=== PATIENT | male | born 1950 | race Caucasian/White ===

== ENCOUNTER 2022-07-03 08:51 | Day surgery (SDC) | payer OTHER ==
[2022-07-02 09:51] LABS: Absolute Lymphocytes (CBC) 1.3 K/uL (0.7-4.9); Hematocrit 39.3 % (39.6-49.0); Lymphocytes % 26.5 % (15.3-44.8); MCV 93.5 fL (80-100); MPV 7.8 fL (7.6-11.3)
[2022-07-02 10:03] LABS: Potassium 3.3 mEq/L (3.5-5.1)
--- NOTE | 2022-07-03 04:52 | EKG ---
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
[2022-07-03] MEDS ORDERED: CEFAZOLIN SODIUM 1 GM/VIAL ONE (09:07)
[2022-07-03] MEDS ORDERED: Ringers Lactate 1,000 ML IV ONE (09:07)
[2022-07-03] MEDS ORDERED: MIDAZOLAM HCL 2 MG/2 ML INJ ONE (11:01)
[2022-07-03] MEDS ORDERED: propofoL 200 MG/20 ML VIAL IV ONE (11:01)
[2022-07-03] MEDS ORDERED: FENTANYL CITR 100 MCG/2 ML ONE (11:01)
[2022-07-03] MEDS ORDERED: LIDOCAINE 2% MPF 5 ML VIAL ONE (11:02)
[2022-07-03] MEDS ORDERED: ONDANSETRON 4 MG/2 ML VIAL ONE (11:02)
[2022-07-03] MEDS ORDERED: KETOROLAC 30 MG/ML INJ ONE (12:08)
[2022-07-03] MEDS ORDERED: HYDROCODONE/APAP 10/325 TAB ONE (13:47)
[2022-07-03 14:12] VITALS: BP 129/83; TEMP 97.2; O2SAT 99
--- NOTE | 2022-07-03 23:16 | OP ---
Date of Procedure: 07/03/2022 Surgeon: Beltran Whitmore MD Preoperative Diagnoses: Left knee pain with mechanical symptoms, probable medial and lateral menisca l tears. Postoperative Diagnosis: Left knee with displaceable medial and lateral meniscal tears. Estimated Blood Loss: Less than 10 cc. Procedure: Left knee arthroscopy with debridement of medial and lateral meniscal tears. Indications For Operation: Mr. Espinoza is a 72-year-old gentleman who unfortunately has had pain, weak ness, and disability since injuring himself playing pickleball in April. He did not respond well to conservative management. X-rays did not demonstrate extensive arthritic changes. Therefore, an M RI was done, which demonstrates probable medial and lateral meniscal tears. Risks, benefits, and alt ernatives to knee arthroscopy have been discussed with the patient. He states he understands things as presented and wishes to proceed. Description Of Procedure: The patient was taken to the operating room and placed in the supine posit ion. General anesthesia obtained by staff. Following this, well-padded tourniquet placed on superio r left thigh. Left lower extremity was then prepped and draped in the usual sterile fashion procedur e. Following this, a standard superomedial arthroscopy portal was then placed with liberation approx imately 10 cc of rather normal-appearing synovial fluid. This was followed by placement of inferolat eral arthroscopy portal. The knee was then sequentially examined including the suprapatellar pouch, medial and lateral gutters, medial and lateral compartments, as well as the notch and patellofemoral joint. Pertinent findings included what appeared to be tear of the medial meniscus with a small radi al flap as well as a complex tear of the lateral meniscus and a standard inferomedial arthroscopy por americo was then placed using direct vision and the shaver was used to debride back the medial meniscus t o a firm hook, stable, well contoured base. Attention was then turned to the lateral meniscus. This had a very large horizontal component as well as very frayed. It was probed and was then debrided b ack until it was a firm hook, stable, and fairly well contoured. It should be noted that there was a residual horizontal tear, which goes along, but this was not displaceable within the knee joint and felt rather than excising additional meniscus this could provide some hook stress and therefore, was retained. After this, the knee was again examined in all of the above areas. No further pathology s een, which was amenable to arthroscopic intervention. The inferior arthroscopy portals were then sta pled shut. This was followed by placement of Marcaine with epinephrine. With superomedial arthrosco py portal, this was then stapled. The patient was placed in a well-padded sterile dressing, awakened and taken to recovery room. No complications. /MODIshaan Voice ID: [id number] Report ID: [id number]
== END 2022-07-03 13:56 | disposition home or self-care (01) ==
LOC: OR 08:51
PROVIDERS: ATTEND Orthopaedic Surgery
PROC: 0SBD4ZZ Excision of Left Knee Joint, Percutaneous Endoscopic Approach (ICD-10-PCS; principal; 2022-07-03 12:00)
DX: S83.242A Other tear of medial meniscus, current injury, left knee, initial encounter (principal); S83.282A Other tear of lateral meniscus, current injury, left knee, initial encounter
CPT/HCPCS: 93005; 85025; 80048; 36415; 29877; J2704; J2001; J2250; J3010; J2405; J7120; J0690

== ENCOUNTER → 2023-05-22 | Emergency (ER) | payer OTHER ==
--- OUTSIDE RECORDS SUMMARY | 2023-05-22 10:16 | XMS REPORT | Continuity of Care Document ---
Author Name Unknown Address [address] [facility] [address] thconnect Address [address] [facility] [address] [place] [address] Care Team Providers Care Air Deodorizer Servicer Name Role Phone Swapna Attending Clinician Unavail Beltran Whalen MD Attending Clinician MUKUND VALENTINO Attending Clinician Unavailable BELTRAN CRUZ M.D. Attending Clinician UnavailMARIPOSA Fowler M.D. Attending Clinician Unavail able Swapna Admitting Clinician Unavail able Payers Payer Name Policy Type Policy Number Effective Date Expirati on Date Source [facility] (MEDICARE SUPPLEMENT) [id number] 2022 00:00:00 MEDICARE PART A \T\ B [id number] 2018 00:00:00 Problems Condition Name Condition Details Condition Category Status Onset Date Resolution Date Last Treatment Date Treating Clinician Comments Source Normal routine physical examinatio n Normal routine physical examinatio n Problem Active [facility] Gouty arthritis Gouty arthritis Problem Active [facility] Sarcoidosi s Sarcoidosi s Problem Active [facility] Allergies, Adverse Reactions, Alerts Allergy Name Allergy Type Status Severity Reaction(s) Onset Date Inactive Date Treating Clinician Comments Source Codeine Allergy to substanc e Active 09-26 00:00: 00 [facility] NO KNOWN ALLERGIE S Drug Class Active [facility] Codeine Derivati ves Allergy to drug (finding ) Active [facility] Social History Social Habit Start Date Stop Date Quantity Comments Source Exposure to SARS-CoV-2 (event) Not sure [facility] Sex Assigned At 1950 00:00:00 1950 00:00:00 [facility] Smoking Status Start Date Stop Date Source Unknown if ever smoked [facility] Never smoked tobacco (finding) [facility] Medications Ordered Medication Name Filled Medication Name Start Date Stop Date Current Medication? Ordering Clinician Indication Dosage Frequency Signature (SIG) Comments Components Source lisinopril 10 MG tablet 08-12 00:00: 00 Yes 10mg Q.5D Take 10 mg by mouth 2 (two) times a day. [facility] predniSONE 20 MG Oral Tablet predniSONE 20 MG Oral Tablet 08-18 00:00: 00 Yes MARIPOSA JUAREZ M.D. QD TAKE ONE (1) TABLET(S) BY MOUTH ONCE A DAY WITH FOOD. [facility] Aspirin 81 MG TABS Aspirin 81 MG TABS 2013-03 00:00: 00 Yes 1 QD TAKE 1 TABLET DAILY. [facility] Lisinopril 10 MG Oral Tablet Lisinopril 10 MG Oral Tablet 2012-03 00:00: 00 Yes 1 Q0.5D TAKE 1 TABLET TWICE DAILY [facility] Vitamin B 12 250 MCG Oral Lozenge Vitamin B 12 250 MCG Oral Lozenge 07-30 00:00: 00 Yes [facility] ZyrTEC Allergy 10 MG Oral Capsule ZyrTEC Allergy 10 MG Oral Capsule 07-30 00:00: 00 Yes 1 QD TAKE 1 CAPSULE DAILY PRN allergies [facility] Triamcinolo ne Acetonide 0.1 % External Cream Triamcinolo ne Acetonide 0.1 % External Cream 07-30 00:00: 00 Yes Q0.5D APPLY AND RUB IN A THIN FILM TO AFFECTED AREAS TWICE DAILY.(AM AND PM). [facility] Neutrogena Naturals Face/Body BAR Neutrogena Naturals Face/Body BAR 07-30 00:00: 00 Yes [facility] Vital Signs Vital Name Observation Time Observation Value Comments S heather BP Systolic 2019-01-26 14:16:00 108 mm[Hg] Location : LUE; Position: Sitting [facility] BP Diastolic 2019-01-26 14:16:00 68 mm[Hg] Location : LUE; Position: Sitting [facility] Weight 2019-01-26 14:16:00 186.3125 [lb_av] [facility] Body Mass Index Calculated 2019-01-26 14:16:00 24.58 kg/m2 [facility] Heart Rate 2019-01-26 14:16:00 69 /min [facility] BP Systolic 2019-01-26 14:12:00 135 mm[Hg] Location : LUE; Position: Sitting [facility] BP Diastolic 2019-01-26 14:12:00 82 mm[Hg] Location : LUE; Position: Sitting [facility] Weight 2019-01-26 14:12:00 194.125 [lb_av] [facility] Body Mass Index Calculated 2019-01-26 14:12:00 25.61 kg/m2 [facility] Heart Rate 2019-01-26 14:12:00 70 /min [facility] BP Systolic 2018-01-20 13:26:00 118 mm[Hg] Location : RUE; Position: Sitting [facility] BP Diastolic 2018-01-20 13:26:00 80 mm[Hg] Location : RUE; Position: Sitting [facility] Height 2018-01-20 13:26:00 73 [in_us] [facility] Weight 2018-01-20 13:26:00 186.1 [lb_av] [facility] Body Mass Index Calculated 2018-01-20 13:26:00 24.55 kg/m2 [facility] Heart Rate 2018-01-20 13:26:00 80 /min Location : R Carotid; [facility] Procedures Procedure Date / Time Performed Performing Clinicia n Source [QLH] CBC (INCLUDES DIFF/PLT) 2018-01-20 00:00:00 [facility] [[facility]] CMP W/EGFR 2018-01-20 00:00:00 [facility] [QL] C-REACTIVE PROTEIN 2018-01-20 00:00:00 [facility] [[facility]] SED RATE BY MODIFIED MEGAN 2018-01-20 00:00:00 [facility] Encounters Start Date/Time End Date/Time Encounter Type Admission Type Attending Clinicians Care Facility Care Department Encounter ID Source 2022-05-29 00:00:00 2022-05-29 00:00:00 Outpatient PALOMA_Lori_ Chauncey AO AO [id number] [facility] 2020-09-26 14:52:37 2020-09-26 15:07:37 Office Visit Beltran Cruz [facility] 4 [id number] [facility] 2020-05-23 14:40:00 2020-05-23 14:40:00 Outpatient MUKUND MONTOYA [facility] [id number] [facility] 2020-05-23 14:40:00 2020-05-23 14:40:00 Outpatient MUKUND MONTOYA [facility] [id number] [facility] 2019-10-26 14:20:00 2019-10-26 14:20:00 Appointmen t; BELTRAN CRUZ M.D. MAYS, STEVEN, M.D. [facility] [id number] [facility] 2019-01-26 14:00:00 2019-01-26 14:00:00 Appointmen t; MARIPOSA JUAREZ M.D. BARNES, JAMMIE, M.D. [facility] Rheumatolog y [id number] [facility] 2019-01-19 14:00:00 2019-01-19 14:00:00 Appointmen t; MARIPOSA JUAREZ M.D. BARNES, JAMMIE, M.D. [facility] UTP [id number] [facility] 2018-01-20 13:30:00 2018-01-20 13:30:00 Appointmen t; MARIPOSA JUAREZ M.D. BARNES, JAMMIE, M.D. [facility] Rheumatolog [facility] [id number] [facility] 2016-07-25 14:00:00 2016-07-25 14:00:00 Appointmen t; MARIPOSA JUAREZ M.D. BARNES, JAMMIE, M.D. [facility] U[facility] [id number] [facility] 2016-07-11 14:00:00 2016-07-11 14:00:00 Appointmen t; MARIPOSA JUAREZ M.D. BARNES, JAMMIE, M.D. [facility] [id number] [facility] Results Test Description Test Time Test Comments Results Result Co mments Source [facility]] CMP [id number] 14:56:00* Test Item Value Reference Range Interpretation Comme nts GLUCOSE; Normal (test code = 1547-9) 91 mg/dl 65-99 N Fasting referenc e interval UREA NITROGEN (BUN) (test code = UREA NITROGEN (BUN)) 24 mg/dl 7-25 N CREATININE (test code = CREATININE) 1.44 mg/dl 0.70-1.25 For patients >49 years of age, the reference limitfor Creatinine is approximately 13% higher for peopleidentified as -Afghan. eGFR NON- (test code = eGFR NON-) 50 {ML/MIN/1.7} > OR = 60 eGFR (test code = eGFR ) 58 {ML/MIN/1.7} > OR = 60 BUN/CREATININE RATIO (test code = BUN/CREATININE RATIO) 17 {CALC} 6-22 N SODIUM (test code = SODIUM) 141 mmol/L 135-146 N POTASSIUM (test code = POTASSIUM) 4.2 mmol/L 3.5-5.3 N CHLORIDE (test code = CHLORIDE) 101 mmol/L 98-110 N CARBON DIOXIDE (test code = CARBON DIOXIDE) 31 mmol/L 20-32 N CALCIUM (test code = CALCIUM) 10.1 mg/dl 8.6-10.3 N PROTEIN, TOTAL (test code = PROTEIN, TOTAL) 7.2 g/dl 6.1-8.1 N ALBUMIN (test code = ALBUMIN) 4.6 g/dl 3.6-5.1 N GLOBULIN (test code = GLOBULIN) 2.6 {G/DL CALC} 1.9-3.7 N ALBUMIN/GLOBULIN RATIO (test code = ALBUMIN/GLOBULIN RATIO) 1.8 {CALC} 1.0-2.5 N BILIRUBIN, TOTAL; Normal (test code = 22011-1) 0.9 mg/dl 0.2-1.2 N ALKALINE PHSPHATASE (test code = ALKALINE PHSPHATASE) 73 u/l 40-115 N AST; Normal (test code = 1916-6) 18 u/l 10-35 N ALT; Normal (test code = 1742-6) 14 u/l 9-46 N [facility]] SED RATE BY MODIFIED [id number] 14:56:00* Test Item Value Reference Range Interpretation Comme nts SED RATE BY MODIFIED WESTERG BOBBY (test code = SED RATE BY MODIFIED WESTERGBOBBY) 6 mm/h < OR = 20 N [facility]] CBC (INCLUDES DIFF/PLT)2018-01-20 14:56:00* Test Item Value Reference Range Interpretation Comme nts WHITE BLOOD CELL COUNT (test code = WHITE BLOOD CELL COUNT) 4.5 {Thousand/u} 3.8-10.8 N RED BLOOD CELL COUNT (test code = RED BLOOD CELL COUNT) 4.72 {Million/uL} 4.20-5.80 N HEMAGLOBIN; Normal (test code = 96253-4) 14.5 g/dl 13.2-17.1 N HEMATOCRIT; Normal (test code = 4544-3) 43.1 % 38.5-50.0 N MCV; Normal (test code = 787-2) 91.3 fL 80.0-100.0 N MCHC; Normal (test code = 04314-1) 33.6 g/dl 32.0-36.0 N RDW; Normal (test code = 788-0) 12.8 % 11.0-15.0 N PLATELET COUNT; Normal (test code = 777-3) 242 {Thousand/u} 140-400 N MPV; Normal (test code = 07538-8) 10.5 fL 7.5-12.5 N ABSOLUTE NEUTROPHILS (test code = ABSOLUTE NEUTROPHILS) 3024 {cells/uL} 5572-7226 N ABSOLUTE LYMPHOCYTES (test code = ABSOLUTE LYMPHOCYTES) 738 {cells/uL} 850-3900 ABSOLUTE MONOCYTES (test code = ABSOLUTE MONOCYTES) 567 {cells/uL} 200-950 N ABSOLUTE EOSINOPHILS (test code = ABSOLUTE EOSINOPHILS) 140 {cells/uL} 15-500 N ABSOLUTE BASOPHILS (test code = ABSOLUTE BASOPHILS) 32 {cells/uL} 0-200 N NEUTROPHILS (test code = NEUTROPHILS) 67.2 % N LYMPHOCYTES (test code = LYMPHOCYTES) 16.4 % N MONOCYTES; Normal (test code = 58538-2) 12.6 % N EOSINOPHILS; Normal (test code = 50539-6) 3.1 % N BASOPHILS; Normal (test code = 58187-1) 0.7 % N [facility]] C-REACTIVE [id number] 14:56:00* Test Item Value Reference Range Interpretation Comme nts C-REACTIVE PROTEIN (test cod e = C-REACTIVE PROTEIN) 4.3 mg/L <8.0 N [facility]
--- NOTE | 2023-05-22 11:21 | RAD REPORT ---
EXAM DESCRIPTION: RAD - Wrist Left 3 View - 05/22/2023 10:47 am CLINICAL HISTORY: PAIN COMPARISON: No comparisons TECHNIQUE: Left wrist, 3 views. FINDINGS: No acute fracture. Widening of the scapholunate distance. Moderate radiocarpal degenerativ e changes with joint space narrowing. There is no dislocation or periosteal reaction noted. No suspic ious bony finding. No foreign body. Soft tissue swelling about the wrist most pronounced dorsally. 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 Widening of the scapholunate distance,, which may suggest underlying scapholunate ligament tearing.
--- NOTE | 2023-05-22 11:27 | ER ---
Nurse's Notes [facility] Name: Norman Espinoza Jr Age: 73 yrs Sex: Male : 1950 Arrival Date: 05/22/2023 Time: 10:12 Bed DX4 Private MD: Pratik Forde C Diagnosis: Sprain of carpal joint of left wrist Presentation: 05/21 10:38 Chief complaint: Patient states: fall yesterday, left wrist pain and swelling today. iw 10:56 Coronavirus screen: At this time, the client does not indicate any symptoms associated iw with coronavirus-19. Ebola Screen: No symptoms or risks identified at this time. Initial Sepsis Screen: Does the patient meet any 2 criteria? No. Patient's initial sepsis screen is negative. Does the patient have a suspected source of infection? No. Patient's initial sepsis screen is negative. Risk Assessment: Do you want to hurt yourself or someone else? Patient reports no desire to harm self or others. Onset of symptoms was May 21, 2023. 10:56 Method Of Arrival: Ambulatory iw 10:56 Acuity: LAWR[place] 4 iw Triage Assessment: 11:00 General: Appears in no apparent distress. Injury Description: sprain. iw Historical: - Allergies: 10:57 No Known Allergies; iw - PMHx: 10:57 Hypertensive disorder; Hypercholesterolemia; iw - PSHx: 10:57 knee; iw - Immunization history:: Adult Immunizations up to date. - Social history:: Smoking status: Patient denies any tobacco usage or history of. Screenin:41 [facility] ED Fall Risk Assessment (Adult) History of falling in the last 3 months, iw including since admission Yes- single mechanical fall (1 pt) Confusion or Disorientation No (0 pts) Intoxicated or Sedated No (0 pts) Impaired Gait No (0 pts) Mobility Assist Device Used No (0 pt) Altered Elimination No (0 pt) Score/Fall Risk Level 0 - 2 = Low Risk. Abuse screen: Denies threats or abuse. Denies injuries from another. Nutritional screening: No deficits noted. Tuberculosis screening: No symptoms or risk factors identified. Assessment: 11:41 General: Appears in no apparent distress. Behavior is calm, cooperative. Pain: iw Complains of pain in left wrist. Neuro: Level of Consciousness is awake, alert, obeys commands, Oriented to person, place, time, situation, Moves all extremities. Cardiovascular: Patient's skin is warm and dry. Respiratory: Respiratory effort is even, unlabored, Respiratory pattern is regular. Derm: Skin is intact. Musculoskeletal: Range of motion: limited in left wrist. Vital Signs: 10:56 BP 140 / 81; Pulse 68; Resp 16; Temp 98.1; Pulse Ox 100% on R/A; Weight 85.28 kg; iw Height 6 ft. 1 in. ; Pain 03/19; 10:56 Body Mass Index 24.80 (85.28 kg, 185.42 cm) iw 10:56 Pain Scale: Adult iw ED Course: 10:13 Patient arrived in ED. rg4 10:14 Pratik Forde MD is Private Physician. rg4 10:16 Devin Ramon MD is Attending Physician. ec2 10:49 Wrist Left 3 View In Process Unspecified. EDMS 10:57 Triage completed. iw 10:57 Arm band placed on. iw 11:41 Ceci Villasenor RN is Primary Nurse. iw 11:42 Patient has correct armband on for positive identification. iw 11:46 No provider procedures requiring assistance completed. Patient did not have IV access iw during this emergency room visit. Administered Medications: No medications were administered Medication: 11:41 VIS not applicable for this client. iw Outcome: 11:27 Discharge ordered by . ec2 11:45 Discharged to home ambulatory, iw 11:45 Condition: good 11:45 Discharge instructions given to patient, Instructed on discharge instructions, follow up and referral plans. Demonstrated understanding of instructions, follow-up care, 11:47 Patient left the ED. iw Signatures: Dispatcher [employer] DEEPAKRI Ceci Villasenor RN RN iw Garcia, Rubi 4 Devin Ramon MD MD ec2 Corrections: (The following items were deleted from the chart) 10:57 10:56 Pulse 68bpm; Resp 16bpm; Pulse Ox 100% RA; Temp 98.1F; 85.28 kg; Height 6 ft. 1 iw in.; BMI: 24.8; Pain 03/19, Adult; iw
--- NOTE | 2023-05-22 11:27 | EDPHYS ---
Physician Documentation [facility] Name: Norman Espinoza Jr Age: 73 yrs Sex: Male : 1950 Arrival Date: 05/22/2023 Time: 10:12 Bed DX4 Private MD: Pratik Forde C ED Physician Devin Ramon HPI: 05/21 11:02 This 73 yrs old Male presents to ER via Ambulatory with complaints of Wrist ec2 Injury. 11:02 Patient arrives today for evaluation of a left wrist injury. Patient reports that he ec2 was walking and subsequently tripped and fell landed on his left wrist. Denies any head strike, no LOC.. Historical: - Allergies: 10:57 No Known Allergies; iw - PMHx: 10:57 Hypertensive disorder; Hypercholesterolemia; iw - PSHx: 10:57 knee; iw - Immunization history:: Adult Immunizations up to date. - Social history:: Smoking status: Patient denies any tobacco usage or history of. ROS: 11:02 Constitutional: as per hpi ec2 Exam: 11:02 Constitutional: GEN: NAD Head: atraumatic Eyes: EOMI Ears: External ears are ec2 normal. CV: regular rate LUNGS: no respiratory distress ABD: non-distended SKIN: no evidence of rashes MSK: no evidence of trauma, left wrist with minimal swelling appreciated, no obvious deformity, intact distal neurovascular status. NEURO: moves all extremities equally Vital Signs: 10:56 BP 140 / 81; Pulse 68; Resp 16; Temp 98.1; Pulse Ox 100% on R/A; Weight 85.28 kg; iw Height 6 ft. 1 in. ; Pain 1/10; 10:56 Body Mass Index 24.80 (85.28 kg, 185.42 cm) iw 10:56 Pain Scale: Adult iw MDM: 11:02 Patient medically screened. ec2 11:02 Data reviewed: vital signs. ED course: Patient arrives today for evaluation of a left ec2 wrist injury. Examination remarkable for wrist findings as above. Will obtain radiograph, evaluate for fracture. Suspect sprain.. 11:26 ED course: Radiograph of the wrist shows no bony fracture. Likely wrist sprain. Will ec2 discharge home. Return precautions given. . 05/21 10:43 Order name: Wrist Left 3 View; Complete Time: 11:26 EDMS 05/21 11:03 Order name: Dakota Wrap ec2 Administered Medications: No medications were administered Disposition Summary: 05/22/23 11:27 Discharge Ordered Notes: Location: Home ec2 Condition: Stable ec2 Diagnosis - Sprain of carpal joint of left wrist ec2 Followup: ec2 - With: Private Physician - When: - Reason: Re-evaluation by your physician Discharge Instructions: - Discharge Summary Sheet ec2 - Wrist Sprain, Adult ec2 Forms: - Medication Reconciliation Form ec2 - Thank You Letter ec2 - Antibiotic Education ec2 - Prescription Opioid Use ec2 - Patient Portal Instructions ec2 - Leadership Thank You Letter ec2 Signatures: Dispatcher [employer] Ceci Jackson RN RN iw Devin Ramon MD MD ec2
[2023-05-22 12:12] VITALS: BP 140/81; TEMP 98.1; O2SAT 100
== END ==
LOC: ER 10:12
DX: S63.512A Sprain of carpal joint of left wrist, initial encounter (principal)
CPT/HCPCS: 99282